=== PATIENT | male | born 1995 | race Caucasian/White ===

== ENCOUNTER 2018-12-30 20:38 | Emergency (ER) | payer SELFPAY ==
[~2018-12-30] VITALS: Ht 180.3 cm; Wt 86.0 kg
[2018-12-30 21:05] VITALS: BP 138/95
== END 2018-12-30 22:20 | disposition home or self-care (01) ==
LOC: ER 20:39
DX: F19.10 Other psychoactive substance abuse, uncomplicated (principal); F15.10 Other stimulant abuse, uncomplicated; F11.90 Opioid use, unspecified, uncomplicated
CPT/HCPCS: 99281